=== PATIENT | male | born 1965 | race Caucasian/White ===

== ENCOUNTER 2023-04-06 10:53 | Outpatient (REF) | payer MEDICARE, SELFPAY ==
[2023-04-06 17:11] LABS: HCT 40.2 % (40.0-50.0); HGB 13.2 g/dL (13.5-17.5); MCHC 32.8 % (32.0-36.0); MCV 91 fL (80-95); MPV 10.4 fL (8.0-11.0); Platelet Count 237 10^3/uL (130-400); RDW-SD 44.5 fL; WBC 6.17 10^3/uL (4.4-10.8)
[2023-04-06 17:51] LABS: ALT 35 U/L (16-63); AST 26 U/L (15-37); Albumin 3.6 g/dL (3.4-5.0); Alkaline Phosphatase 78 U/L (46-116); Anion Gap 7.3 mmol/L (3-11); BUN 20 mg/dL (7-18); Bilirubin, Total 0.5 mg/dL (0.2-1.0); CO2 25.7 mmol/L (21.0-32.0); Calculated LDL 72 mg/dL (<100); Chloride 106 mmol/L (98-107); Cholesterol 134 mg/dL (<200); Estimated GFR 88.33 (mL/min/1.73m2); Glucose 97 mg/dL (74-106); HDL Cholesterol 55 mg/dL (40-60); Potassium 5.1 mmol/L (3.5-5.1); Sodium 139 mmol/L (136-145); Total Protein 6.7 g/dL (6.4-8.2); Triglyceride 38 mg/dL (<150)
[2023-04-06 19:14] LABS: Hemoglobin A1C 6.8 % (<5.7)
[2023-04-09 09:51] LABS: PSA, Screening 0.5 ng/mL (<=3.5)
== END 2023-04-06 10:54 | disposition home or self-care (01) ==
LOC: NCHCN 10:53
PROVIDERS: PCP Physician Assistant; Visit Provider Physician Assistant
DX: E11.9 Type 2 diabetes mellitus without complications (principal); F41.8 Other specified anxiety disorders; I10 Essential (primary) hypertension; M54.89 Other dorsalgia; Z12.5 Encounter for screening for malignant neoplasm of prostate
CPT/HCPCS: 80053; 80061; 84153; 85027; 83036